=== PATIENT | female | born 1945 | race Caucasian/White ===

== ENCOUNTER 2016-12-06 16:11 | Inpatient (IN) | payer OTHER ==
[~2016-12-06] VITALS: Ht 162.6 cm; Wt 88.4 kg
--- NOTE | ~2016-12-06 | DS ---
Unit #: [id number] #: [id number] Patient: ERIC ALEXANDRA [id number] [address] [place], [place] [address] [id number] I MR#: [id number] NAME: ERIC ALEXANDRA ROOM: 322 Age: 71 Sex: F Admission Date: 12/06/2016 : 1945 Discharge Date: 12/09/2016 Attending Physician: Tomás Mcarthur M.D. Primary Care Physician: Malick Huber M.D. DISCHARGE SUMMARY PRINCIPAL DISCHARGE DIAGNOSES 1. Recurrent gastrointestinal bleed. 2. Acute on chronic anemia. 3. Diabetic ketoacidosis. 4. History of medical noncompliance. 5. Iron deficiency anemia. 6. History of gastritis. 7. History of colonic polyps. 8. History of diverticular disease. 9. History of coronary artery disease. 10. History of hypertension. 11. Renal insufficiency on admission that resolved. 12. Hypokalemia. PROCEDURES 1. Transfusion one unit packed rbc's, 12/06/2016. 2. Transfusion one unit packed rbc's, 12/07/2016. 3. Push enteroscopy up to proximal jejunum. CONSULTANTS Dr. Tima Sánchez; Dr. Iris Grove; Dr. Phillip Caldwell M.D. REASON FOR HOSPITALIZATION The patient is a 71-year-old white female with a history of coronary artery disease, three vessel anemia, gastritis, hiatal hernia, hypertension, diverticulosis, multiple GI bleeds, noncompliant, left AMA last admission February 2016, during which stay she had angioplasty, EGD, and colonoscopy. She presented to the emergency room on the day of admission complaining of bright red blood per rectum for 24 hours. In the ER she was hypotensive, anemic, had a blood sugar of 608, elevated beta hydroxybutyrate and was directly admitted to the ICU. Her hemoglobin on admission was 8.8. She was transfused one unit in the emergency room. She was placed on a DKA protocol with an insulin drip. Dr. Tima Sánchez from GI service, Dr. Grove from endocrinology were consulted. Additional test showed a hemoglobin A1c of 14.1. B12 and folic acid levels were within normal limits. Ferritin was low. Iron was 46, transferring saturation is 16, TIBC 280. Patient placed on IV iron. Her hemoglobin the following morning was 7.6 and she was transfused a second unit of blood. She underwent push endoscopy or enteroscopy on 12/07/2016, which showed a coincidental distal esophageal nonobstructing Schatzki's ring, otherwise is normal, up to 7 inches of the proximal jejunum. It was not felt to repeat her colonoscopy since she had multiple and had 02/2016. Her blood sugars came under better control. She required no further transfusions. Dr. Sánchez asked Dr. Caldwell to see her for her chronic Unit #: [id number] #: [id number] Patient: ERIC ALEXANDRA anemia. He recommended continued IV iron and scheduled followup in the office. Currently she appears to be stable. Her BMP, magnesium this morning were normal, except for random blood sugar of 171. Her CBC this morning is normal except for hemoglobin of 8. She is to followup with Dr. Huber in one week. Followup with Dr. Caldwell in one week. Followup with Dr. Tima Sánchez 01/15/2017 at 9:30 a.m. She is on a constant carb diet. DISCHARGE MEDICATIONS 1. Her aspirin and Plavix have been discontinued. 2. Her metformin, Zestoretic and amlodipine have been discontinued. 3. She is on Nystop powder b.i.d. to the vaginal area p.r.n. 4. Metoprolol XL 50 mg daily. 5. Levemir 50 units b.i.d. 6. NovoLog 20 units subcu a.c. 7. Omeprazole 40 mg p.o. b.i.d. 8. Imdur ER 30 mg daily. 9. Nitrostat 0.4 mg sublingual p.r.n. 10. It is unclear at this point whether it is safe to resume her Plavix and aspirin but I will leave this to Dr. Huber and Dr. Tierney's discretion. Dictated by... Joey Garnett M.D. GRICELDA/tatiana TD: 12/10/2016 12:44 JOB #: [id number] DISCHARGE SUMMARY Page 1 of 1 X Joey Garnett MD DISCHARGE SUMMARY
--- NOTE | ~2016-12-06 | CT2 ---
[facility] A Service of [facility] & [facility] RADIOLOGY TEXT RESULTS PATIENT: ERIC ALEXANDRA LOCATION: [address] : [birth year] UNIT #: [id number] AGE: [address]: Tomás Mcarthur MD SEX: F ORDER DR: [id number] [facility] [address] [facility]. [place], [place] [address] [id number] I MR#: [id number] Acc #: [id number] NAME: ERIC ALEXANDRA : 1945 SEX: F STUDY DATE/TIME: 12/06/2016 18:00 UNIT: [facility] ROOM: [facility] STUDY DESCRIPTION: CT Abd and Pelv W Cont Attending Physician: Tomás Mcarthur M.D. Ordering Physician: Todd Mai M.D. Primary Care Physician: Malick Huber M.D. MEDICAL IMAGING REPORT This report is preliminary unless electronic signature is present EXAM CT of the abdomen and pelvis with contrast, 12/06/[address] of the abdomen and pelvis with contrast, 03/10/2014 HISTORY Abdominal pain, bloody stools since 7 a.m. on 12/06/2016. TECHNIQUE CT of the abdomen and pelvis were obtained with IV contrast in the axial plane followed by sagittal and coronal reformats. Oral contrast was not administered. This CT exam was performed with one or more of the following radiation dose reduction techniques: automatic exposure control, adjustment of mA and/or kV according to patient size, and iterative reconstruction. FINDINGS Lack of oral contrast limits evaluation of bowel loops. LOW CHEST: Unremarkable. ABDOMEN: There appears to be slightly decreased density throughout the liver when compared to the spleen suspicious for mild diffuse fatty degeneration. It has not significantly enlarged in size however. No intrahepatic biliary ductal dilatation or mass. Spleen, adrenal glands, pancreas, kidneys are within normal limits. Bowel loops do not demonstrate any evidence of bowel obstruction. There are scattered diverticula without evidence of acute diverticulitis. Appendix is within normal limits. Degenerative changes are noted in the thoracolumbar spine. There is no free fluid or free air intraperitoneally. [facility] A Service of [facility] & [facility] RADIOLOGY TEXT RESULTS PATIENT: ERIC ALEXANDRA LOCATION: CICCU2 CICCU2-09 : [birth year] UNIT #: [id number] AGE: [address]: Tomás Mcarthur MD SEX: F ORDER DR: PELVIS: Uterus, urinary bladder and bowel loops do not demonstrate any significant abnormality. IMPRESSION 1. No evidence of acute abnormality in the abdomen or pelvis. 2. Appendix and gallbladder are unremarkable. No evidence of bowel obstruction. 3. Diverticulosis without acute diverticulitis. 4. Degenerative changes in the spine. Dictated by... Alpesh Rosales M.D. THIS IS AN ELECTRONICALLY VERIFIED REPORT Alpesh Rosales M.D. at 12/07/2016 9:16 PM RADHA/edd TD: 12/07/2016 18:23 JOB #: [id number] MEDICAL IMAGING REPORT Page 1 of 1 COPY
--- NOTE | ~2016-12-06 | A ---
[facility] Therapy DATE: 12/08/16 Patient: ERIC ALEXANDRA Physician: SAW Address: [address] Room/Bed: [address], Zip: [place] [address] Admit Date: 12/06/16 Date of : [birth year] Height: 5 4 Weight: 191 87 NUTRITIONAL ASSESSMENT: REASON: PT SEEN FOR DX PT IS 71 Y.O. FEMALE ADMITTED FOR GI BLEED, DKA PMH: POORLY CONTROLLED, NON COMPLIANT T2DM (DIAGNOSED 8 YEARS AGO), CAD, RECURRENT GI BLEED, HIATAL HERNIA, GASTRITIS, DIVERTICULOSIS, IBS, HTN Anthropometrics: 5'4", WT: 194# (88 KG), BMI: 33.3, 162%IBW Labs: GLU: 279, CA+:8.1, ALB: 2.7, Hgb A1c: 14.1 (REFLECTS POORLY CONROLLED DM) Meds: NOVOLOG, KCL, D5%, PROTONIX, NACL I/O & Bowel function: , 1 BM NOTED Skin Integrity: NO KNOWN SKIN ISSUES Assessment: CHART REVIEWED AND EVENTS NOTED. PT SEEN FOR DX. PT SITTING IN CHAIR AT TIME OF VISIT REPORTING GOOD PO INTAKE AND APPETITE. PT DENIES ANY RECENT WEIGHT LOSS, NOTED UBW IS ~195-200#. PER RN AND CHART, PT ADMITTED FOR RECURRENT GI BLEED AND DKA. THIS RD PROVIDED WRITTEN AND VERBAL CC DIET EDUCATION. PT REPORTS DRINKING MILK, UNSWEET TEA, WATER, AND DIET SODAS DAILY. THIS RD ENCOURAGED MORE WATER INTAKE, PT AGREED. PT REPORTS NOT FOLLOWING ANY SPECIFIC DIET AT HOME. PT REPORTED NO DIET QUESTIONS AT THIS TIME. RD TO REMAIN AVAILABLE. SEE RECOMMENDATIONS BELOW. Dx: IMPAIRED GLYCEMIC CONTROL R/T PMH, CURRENT DIAGNOSIS AEB ELEVATED BLOOD SUGAR LEVELS, A1c OF 14.1, NEED FOR THERAPEUTUC DIET ORDER. 2. STAGE 1 OBESITY R/T LIFESTYLE AEB BMI OF 33. Intervention: 1. 1800 KCAL DIET 2. DIET EDUCATION Monitoring, Evaluation and Goals: 1. ORAL INTAKE; CONSUME/TOLERATE <50% OF MEALS 2. WEIGHTS; PROMOTE GRADUAL WEIGHT LOSS TOWARDS A HEALTHY BMI 3. LABS; GLU WNL MONITOR: -PO INTAKE/APPETITE -WEIGHTS [facility] DATE: 12/08/16 Patient: ERIC ALEXANDRA Physician: SAW Address: [address] [facility] Room/Bed: [address], Zip: [place] [address] Admit Date: 12/06/16 Date of : [birth year] Height: 5 4 Weight: 191 87 -LABS (GLU) -EDUCATION NEEDS Recommendations: 1. RECOMMEND TO ADD CC TO CURRENT DIET ORDER 2' CURRENT DIAGNOSIS, PMH 2. RE-CONSULT RD IF FURTHER DIET EDUCATION NEEDED/REQUESTED 3. CONTINUE TO OPTIMIZE BLOOD SUGAR CONTROL REGIMEN RD WILL F/U PER PROTOCOL PT IS MILDLY COMPROMISED Respectfully, Keo Hooks, RD, LD [employer] [facility] [place] [facility] cc: client file
--- NOTE | ~2016-12-06 | EKG ---
PATIENT: ERIC ALEXANDRA UNIT #: [id number] Ventricular Rate: 78 BPM Atrial Rate: 78 BPM P-R Interval: 172 ms QRS Duration: 86 ms Q-T Interval: 380 ms QTC Calculation(Bezet): 433 ms P [place]: 28 degrees Calculated R [place]: -35 degrees Calculated T [place]: 43 degrees Diagnosis Line: Normal sinus rhythm Diagnosis Line: Left axis deviation Diagnosis Line: Abnormal ECG Diagnosis Line: When compared with ECG of 01-MAR-2016 06:56, Diagnosis Line: T wave inversion no longer evident in Anterior Diagnosis Line: leads Diagnosis Line: QT has shortened Diagnosis Line: Confirmed by SANTIAGO CONDE MD ([id number]) on Diagnosis Line: 12/08/2016 4:53:20 PM INTERPRETING MD: PRAVEEN
--- NOTE | ~2016-12-06 | CO ---
Unit #: [id number] #: [id number] Patient: ERIC GRIJALVA [id number] [facility]. [address] [place], [place] [address] [id number] I MR#: [id number] NAME: ERIC GRIJALVA ROOM: 322 Age: 71 Sex: F Admission Date: 12/06/2016 : 1945 Attending Physician: Tomás Mcarthur M.D. Primary Care Physician: Malick Huber M.D. Consultation Date: 12/07/2016 CONSULTATION REPORT PRIMARY CARE PHYSICIAN Malick Huber M.D. REASON FOR CONSULTATION 1. Severe anemia. 2. Possible gastrointestinal bleed. HISTORY OF PRESENT ILLNESS Ms. Grijalva is a very pleasant 71-year-old white female. The patient lives at home with her . She has a longstanding history of diabetes and is on insulin. She came in with hyperosmolar state with a blood sugar of 600 without any ketosis. Upon admission, she was also found to have anemia with a hemoglobin between 8 and 8.5, which has since dropped to 7.6. Looking at the old records, the patient is always being anemic at least over several years. I also see that she has multiple endoscopies and colonoscopies done in the past and these have been reportedly normal. Lastly, I do not see any evaluation from standpoint view of celiac disease nor any stool studies for occult blood. These were requested later. The patient very rarely has noticed scant hematochezia while wiping her bottom on occasions. She does mention history of fatigue. She also gives history of peripheral neuropathy as she feels tingling and numbness and burning in her feet most of the day and this keeps her awake at night time too. Her initial admission was precipitated by uncontrolled diabetes. PAST MEDICAL HISTORY Significant for history of angina as well as history of hypertension; diverticulosis; coronary artery disease, status post angioplasties and the patient is on long-term Plavix for the latter; insulin-requiring type 2 diabetes; hypertension; internal hemorrhoids; and diverticulosis. PAST SURGICAL HISTORY Included PTCAs and coronary angioplasty and stent placement. MEDICATIONS At home include Plavix as well as aspirin, metformin, Toprol-XL, Levemir, Zestoretic, Imdur, omeprazole, Nitrostat, NovoLog, and amlodipine. ALLERGIES She has no known drug allergies. SOCIAL HISTORY She does not smoke or drink alcohol, but does mention that she is very fond of cookies and donuts and eats them on a daily basis. Unit #: [id number] #: [id number] Patient: ERIC GRIJALVA FAMILY HISTORY None of colon, pancreatic cancer, or liver disease. REVIEW OF SYSTEMS Detailed review of organ systems does not reveal any recent weight loss. No history of fever, chills, or rigors. No history of headache, seizures, chest pain, or syncope. No history of cough, expectoration, or hemoptysis. No history of dysuria, hematuria, or pyuria. No history of focal seizures or extremity weakness. PHYSICAL EXAMINATION GENERAL: She is awake, alert, oriented, and appears very pleasant and comfortable. VITAL SIGNS: Stable with a temperature of 97.8, pulse 79 per minute and regular, respiratory rate is 14, blood pressure is 118/49. She weighs 194 pounds, which is close to her baseline weight. HEENT: She has mild pallor. There being no icterus, lymphadenopathy, or peripheral edema. CARDIOVASCULAR: Normal heart sounds. No murmurs. LUNGS: Auscultation over the lungs reveal normal breath sounds. Good air entry. ABDOMEN: Soft, obese, and nontender. Liver and spleen are not palpable and bowel sounds normal. DIAGNOSTIC STUDIES LABORATORY RESULTS: Shows a hemoglobin of 8.8 yesterday and 7.6 today in fact she has been transfused 1 unit of packed cells. Her MCV is 77.4, mildly hypochromic microcytic blood picture. White count and platelet counts are normal. INR is 1.0. Serum chemistry shows a normal BUN and creatinine, and sodium of 131; potassium 5.0, it is now 3.1 today. Albumin is 2.7. LFTs otherwise normal. Her iron studies, B12, and folate levels were sent and B12 and folate levels were normal, but ferritin is low and the patient needs iron infusions which are already written by Dr. Garnett. CLINICAL IMPRESSION 1. The patient with uncontrolled diabetes with compromised control overall, HbA1c of 14, poor dietary habits, and she also has peripheral neuropathy due to diabetes. Her anemia is a combination of iron deficiency and possibly anemia of chronic disease, maybe she has underlying myelodysplasia that maybe playing a role. 2. Underlying coronary artery disease, not initially but at the present time. MANAGEMENT PLAN We will obtain the patient's iron studies, B12, and folate levels. Start on iron infusions, which has already been started to transfuse to hemoglobin of 8. Consider a push enteroscopy in the next few hours to look for any angiodysplasias. Lastly, in view of the fact that she has multiple endoscopies and colonoscopy in the past, there is little point in repeating another colonoscopy which is not likely to yield any additional result. We will also obtain Hematology consult with Dr. Benton to see if the patient has any element of myelodysplasia and anything needs to be done in this regard. Lastly, we will also obtain (tTG) IgA level to see the remote possibility of celiac disease. The above plan was discussed with the patient and her and they were reassured. Thank you for asking me to see this pleasant woman. I appreciate the Unit #: [id number] #: [id number] Patient: ERIC GRIJALVA consult. Dictated by... Chucky Verma/kami TD: 12/08/2016 15:05 JOB #: [id number] CC: Chucky Vincent M.D. CONSULTATION REPORT Page 1 of 1 X Tima Sánchez MD X CONSULTATION REPORT
--- NOTE | ~2016-12-06 | OR ---
Unit #: [id number] #: [id number] Patient: ERIC ALEXANDRA [id number] [facility]. [place] [address] [facility]. [place], [place] [address] [id number] I MR#: [id number] NAME: ERIC ALEXANDRA ROOM: [facility] Date of Procedure: 12/07/2016 Admission Date: 12/06/2016 Surgeon: Tima Sánchez M.D. : 1945 Attending Physician: Tomás Mcarthur M.D. Primary Care Physician: Malick Huber M.D. OPERATIVE REPORT PRIMARY CARE PHYSICIAN Malick Huber M.D. PREOPERATIVE DIAGNOSIS Anemia with suggestion of iron deficiency and possibly dimorphic anemia. PROCEDURE PERFORMED Push enteroscopy up to proximal jejunum. POSTOPERATIVE DIAGNOSES The patient had coincidental distal esophageal nonobstructing Schatzki ring. Otherwise, examination was normal up to several inches of proximal jejunum. No angiodysplasias were seen. RECOMMENDATIONS The patient is already written up for blood transfusion and iron infusions by Dr. Garnett. These will be continued. She has had multiple endoscopies and colonoscopies in the past which were negative, therefore there is little point in repeating them. She may have some element of bone-marrow dysplasia and therefore we will request Hematology to see the patient from the latter standpoint. Lastly, the patient has compromised control over diabetes with HbA1c of 14, and she eats donuts and cookies every day. This was addressed too and she will try and alter the diet and may need some help in the future. SEDATION USED Procedural sedation. DESCRIPTION OF PROCEDURE Following detailed explanation of the potential risks and complications of upper endoscopy and a push enteroscopy, namely perforation, bleeding, and complication related to sedation, the patient was laid in left lateral decubitus position. Procedure was done in intensive care unit at the patient's bedside. A colonoscopy was used for push enteroscopy. A bite block was placed. Lubricated tip of the Olympus video colonoscope was inserted through the oral cavity into the esophagus. The entire esophageal mucosa was examined and appeared normal. Z-line was nicely demarcated, there being no esophagitis or hiatus hernia. The patient did have a distal esophageal Schatzki ring with a classic appearance. It was felt to be nonobstructing. The scope was then advanced into the gastric cavity and the latter was insufflated. Mucosa of the fundus, body, and antrum was examined and appeared unremarkable. Pylorus was intubated with Unit #: [id number] #: [id number] Patient: ERIC ALEXANDRA visualization of the normal duodenal bulb and second and third part of duodenum. The scope was then carried into the proximal jejunum and examined the successive segments of the small bowel and these were all normal. There being no evidence of any angiodysplasias. Successive segments of the small bowel mucosa were examined upon withdrawal and appeared unremarkable. The scope was then withdrawn in the antrum and retroverted, whereupon incisura, cardia, and greater curve was examined and appeared normal. The scope was then withdrawn in the distal esophagus. The entire esophageal mucosa was examined all the way up to pharynx, no additional findings were noted. The patient tolerated the procedure without any postprocedure complications. Dictated by... Chucky Verma/kami TD: 12/07/2016 13:27 JOB #: [id number] OPERATIVE REPORT Page 1 of 1 X Tima Sánchez MD X PROCEDURE OPERATIVE NOTE
--- NOTE | ~2016-12-06 | CO ---
Unit #: [id number] #: [id number] Patient: ERIC GRIJALVA [id number] [facility]. [address] [place], [place] [address] [id number] I MR#: [id number] NAME: ERIC GRIJALVA ROOM: 322 Age: 71 Sex: F Admission Date: 12/06/2016 : 1945 Attending Physician: Tomás Mcarthur M.D. Primary Care Physician: Malick Huber M.D. Consultation Date: 12/08/2016 CONSULTATION REPORT REASON FOR CONSULTATION Anemia, please evaluate for myelodysplastic syndrome. HISTORY OF PRESENT ILLNESS Ms. Eric Grijalva is a 71-year-old with a history of coronary artery disease, chronic anemia, gastritis, hiatal hernia, hypertension who was admitted with diabetic ketoacidosis. At time of presentation, she also complained of bright red blood per rectum since the day before. Admission blood sugar 608 with elevated beta-hydroxybutyrate and was hypotensive. She was transfused a unit of packed cells. Records in this hospital which extend to 2008 showed that she is chronically anemic with microcytic indices since that time. She tells me she has a long history of ice craving and she has had multiple endoscopies which have been negative. She was started on Plavix and aspirin for coronary artery disease, last February. No history of melena or hematochezia except immediately prior to her admission. PAST MEDICAL HISTORY Schatzki ring, atrophic gastropathy, nash diverticulosis, internal hemorrhoids, coronary artery disease, hypertension, and insulin-requiring type 2 diabetes approximately 8 years. PAST SURGICAL HISTORY Angioplasty and stent. FAMILY HISTORY Negative for blood disorders. SOCIAL HISTORY Nonsmoker. Does not drink any alcohol. She is and lives with her . REVIEW OF SYSTEMS Fourteen point review of systems was taken. CONSTITUTIONAL: No recent change in appetite or weight. EYES: Negative. EARS, NOSE, MOUTH, AND THROAT: Negative. CARDIOVASCULAR: Negative. RESPIRATORY: Negative. GASTROINTESTINAL: Bright red blood per rectum prior to admission. GENITOURINARY: Negative. NEUROLOGIC: Negative. ALLERGIC/LYMPHATIC: Negative. SKIN: Negative. Unit #: [id number] #: [id number] Patient: ERIC GRIJALVA ENDOCRINE: Diabetes. Does not follow diet. PSYCHIATRIC: Negative. PHYSICAL EXAMINATION GENERAL: She is a pleasant elderly woman, sitting in bed, awake, alert, oriented x3. VITAL SIGNS: Temperature is 99.5, pulse of 105, respirations 14, blood pressure 103/60, O2 saturation 96% on room air. HEENT: Shows pupils are equal and reactive well to light. She is pale, but not icteric. Mucous membranes are moist. NECK: Without adenopathy, JVD, thyromegaly. CARDIOVASCULAR: First and second heart sounds are regular without murmurs, gallops, or rubs. LUNGS: Chest expansion is symmetric. Bilateral equal air entry. Normal breath sounds. ABDOMEN: Soft and nontender. Bowel sounds are active. No organomegaly. EXTREMITIES: Warm. Good pulses. No edema, cyanosis, or clubbing. NEUROLOGIC: She is awake, alert, and oriented x3 without any focal findings. PSYCHIATRIC: Normal affect. SKIN: Negative. DIAGNOSTIC STUDIES LABORATORY RESULTS: CBC shows a white count 11.2, hemoglobin 7.9, MCV 78.6, platelet count 152,000. Basic metabolic panel shows BUN of 14, creatinine is 0.7. Iron studies done during this admission show iron of 46, TIBC is 280, percentage saturation 16% low. B12 is 220, folic acid 11.3, ferritin is 9 low. Last TSH 2.25. ASSESSMENT AND PLAN Eric Grijalva is a 71-year-old with longstanding chronic anemia with microcytic indices. She probably has chronic iron deficiency anemia secondary to occult gastrointestinal bleeding perhaps exacerbated by Plavix and aspirin for coronary artery disease. Long history of ice craving would support this. She may also have an element of iron malabsorption as she has been taking iron tablets on intermittent basis. I discussed situation with Ms. Grijalva as well as her who is at bedside. RECOMMENDATIONS 1. Continue Ferrlecit 250 mg IV for the third dose which would be a total of 750 mg IV. 2. Plan to follow up as an outpatient with additional Feraheme infusions as necessary. Dictated by... Phillip Caldwell M.D. GIO/kami TD: 12/10/2016 14:31 JOB #: [id number] Unit #: [id number] #: [id number] Patient: ERIC GRIJALVA CONSULTATION REPORT Page 1 of 1 X Phillip Caldwell MD CONSULTATION REPORT
--- NOTE | ~2016-12-06 | CO ---
Unit #: [id number] #: [id number] Patient: ERIC ALEXANDRA [id number] [facility]. [address] [place], [place] [address] [id number] MR#: [id number] NAME: ERIC ALEXANDRA ROOM: CICCU2 Age: 71 Sex: F Admission Date: 12/06/2016 : 1945 Attending Physician: Tomás Mcarthur M.D. Primary Care Physician: Malick Huber M.D. Consultation Date: 12/07/2016 CONSULTATION REPORT HISTORY OF PRESENT ILLNESS A 71-year-old female with multiple medical problems including type 2 diabetes mellitus, coronary artery disease with stent placement, history of GI bleed in the past, who presented to the emergency room, noticed some bright red blood per rectum. On her arrival in the emergency room, she was found to have glucose of 608 with some positive ketones. She has been admitted to the unit bed and was started on insulin drip and IV fluids. I have been asked to see the patient for further management. Note, the patient was also anemic on admission with hemoglobin 7.6. ALLERGIES No known drug allergies. PAST MEDICAL HISTORY Type 2 diabetes mellitus, poorly controlled due to poor compliance; coronary artery disease plus stent; multiple GI bleeds; irritable bowel syndrome; hypertension; hiatal hernia; gastritis; diverticulosis. HOME MEDICATIONS Include metformin 1000 mg b.i.d., Levemir 100 units nightly, Zestoretic 10/12.5 mg daily, Plavix 75 mg daily, aspirin daily, Imdur ER 30 mg daily, omeprazole, amlodipine 5 mg daily, NovoLog p.r.n. if blood sugars are high. PAST SURGICAL HISTORY Coronary artery stent placement, endoscopies in the past. SOCIAL HISTORY , not employed, nonsmoker, nondrinker. REVIEW OF SYSTEMS A 12-point review of system is completed. Please see HPI, otherwise unremarkable. PHYSICAL EXAMINATION VITAL SIGNS: Temperature 97.9, pulse is 80, respirations 16. HEENT: EOMI. Pupils equally reactive to light. NECK: Supple. No thyromegaly noted. CHEST: Good air entry. CVS: Regular rhythm. ABDOMEN: Soft, nontender, nondistended. Bowel sounds positive. EXTREMITIES: No edema or ulcers are noted. DIAGNOSTIC STUDIES LABORATORY RESULTS: Reviewed. Glucose is 120, sodium 135, potassium is Unit #: [id number] #: [id number] Patient: ERIC ALEXANDRA 3.1, calcium 7.5, magnesium is 1.5. ASSESSMENT 1. Hyperosmolar hyperglycemia with some ketoacidosis. 2. History of type 2 diabetes mellitus, uncontrolled. 3. Coronary artery disease plus stent placement. 4. Lower gastrointestinal bleed. PLAN The patient's blood sugar is significantly improved. We will discontinue the insulin drip. We will start Levemir 25 units daily. The patient is n.p.o. at this time awaiting the EGD by Dr. Sánchez. Once she resumes her diet, we will start NovoLog 6 units each meal cover with supplemental sliding scale. Accu-Cheks a.c. and h.s. Replace electrolytes. Thanks again for consultation. Dictated by... Chucky Rene/kami TD: 12/08/2016 11:41 JOB #: [id number] CONSULTATION REPORT Page 1 of 1 X Iris Grove MD X CONSULTATION REPORT
--- NOTE | ~2016-12-06 | HP ---
Unit #: [id number] #: [id number] Patient: ERIC ALEXANDRA [id number] [address] [place], [place] [address] [id number] MR#: [id number] NAME: ERIC ALEXANDRA ROOM: [facility]CU2 Age: 71 Sex: F Admission Date: 12/06/2016 : 1945 Attending Physician: Tomás Mcarthur M.D. Primary Care Physician: Malick Huber M.D. HISTORY AND PHYSICAL HISTORY OF PRESENT ILLNESS The patient is a 71-year-old white female with history of coronary artery disease (three vessel), anemia, gastritis, hiatal hernia, hypertension, diverticulosis, irritable bowel syndrome, multiple GI bleeds, noncompliant, left AMA last admission in February 2016 after an extensive evaluation at that time including cath, angioplasty, EGD, colonoscopy, etc. In any case, she presented back to the emergency room on the day of admission complaining of bright red blood per rectum since the day before. In the ER she was hypotensive, anemic, had a blood sugar of 608, elevated beta hydroxybutyrate. Was admitted to the ICU, transfused 1 unit, placed on DKA protocol. Her blood sugar is down to 140 this morning. GI has been consulted. She has been set up for a colonoscopy. Endocrine has been consulted and just arrived on the floor. Currently, the patient has had no further bleeding since she has been here. Her hemoglobin dropped to 7.6 after the 1 unit. Her potassium is low and being addressed this morning. Otherwise, she appears to be stable. The patient denies any nausea, vomiting, or abdominal pain. She denies any recent change in medications, ill exposure, or other symptoms. She has had no chest pain, shortness of air, or any other symptoms. ALLERGIES She has no known drug allergies. MEDICATIONS Meds prior to admission: 1. Zestoretic 01/22.5 one daily. 2. Metformin 1000 mg b.i.d. 3. Toprol XL 100 mg daily. 4. Levemir 100 units nightly. 5. Aspirin 81 mg daily. 6. Plavix 75 mg daily. 7. Omeprazole 40 mg b.i.d. 8. Imdur ER 30 mg daily. 9. Nitrostat 0.4 mg sublingual p.r.n. for chest pain. 10. NovoLog 20 units subcutaneous t.i.d. before meals. 11. Amlodipine 5 mg p.o. daily. PAST SURGICAL HISTORY Surgical history is only that of a stent. PAST MEDICAL HISTORY 1. Esophageal ring. 2. Atrophic gastropathy. 3. Pandiverticulosis. Unit #: [id number] #: [id number] Patient: ERIC ALEXANDRA 4. Internal hemorrhoids. 5. Coronary artery disease. 6. Hypertension. 7. Insulin-requiring type 2 diabetes mellitus. SOCIAL HISTORY , not employed. Nonsmoker. Nondrinker. No street drug use. FAMILY HISTORY Noncontributory. PHYSICAL EXAMINATION GENERAL: She is awake, alert, oriented x3 in no acute distress. VITAL SIGNS: Her blood pressure was 71/40 in the ER but quickly came up after fluid bolus to 118/39. Her current temperature is 97.8, pulse 79, respirations 14, blood pressure 118/49, O2 saturation 100% on 2 L. HEENT: Unremarkable except for pale mucous membranes. NECK: Supple without JVD, bruits, adenopathy, or thyromegaly. CHEST: Clear to auscultation. HEART: Regular rate and rhythm without any murmurs, rubs, or gallops. ABDOMEN: Soft, nondistended, nontender with positive bowel sounds and no hepatosplenomegaly. EXTREMITIES: Showed no clubbing, cyanosis, or edema. GENITOURINARY: Deferred. RECTAL: Deferred. NEUROLOGIC: Grossly intact. DIAGNOSTIC STUDIES LABORATORY: Cardiac enzymes normal on admission. Hemoglobin 8.8 with a low MCV and MCH and normal RDW. She was typed, crossmatched, and transfused 1 unit with a resultant hemoglobin of 7.6 this morning. Her platelets and white count are normal. PT/INR is 1, PTT was less than 20. BMP on admission was normal except for a sodium of 131, glucose 608, GFR 56.7, and albumin of 3.4. Beta hydroxybutyrate was 0.91. Urinalysis shows greater than 1000 mg/dL of glucose. Her CMP this morning is normal except for a potassium of 3.1 and an albumin of 2.7. Her iron is 46, iron transferrin saturation 16, TIBC 280. B12 is 220. Folic acid 11.3. Ferritin 9. CARDIOVASCULAR: EKG shows a sinus rhythm, left axis deviation, 78 beats per minute but is otherwise within normal limits. IMPRESSION 1. Recurrent gastrointestinal bleed. 2. Acute on chronic anemia. 3. History of gastritis. 4. Peptic ulcer disease. 5. History of colonic polyps. 6. History of diverticular disease. 7. Coronary artery disease. 8. Diabetic ketoacidosis. 9. Hypertension. 10. Renal insufficiency. 11. Hypokalemia. 12. History of noncompliance. PLAN Will transfuse one more unit of blood to keep her hemoglobin closer to 8, Unit #: [id number] #: [id number] Patient: ERIC ALEXANDRA especially since she has history of three-vessel coronary artery disease which is quite severe as well as upcoming endoscopy. She is NPO otherwise. Will replace her potassium per protocol. Check her magnesium, IV iron. Followup on her labs. SCDs for deep venous thrombosis prophylaxis. IV proton pump inhibitors for gastrointestinal prophylaxis. Further evaluation pending colonoscopy and results of consultations and transfusion. Dictated by Joey Garnett M.D. GRICELDA/terrence TD: 12/07/2016 10:41 JOB #: [id number] HISTORY AND PHYSICAL Page 1 of 1 X Joey Garnett MD X HISTORY AND PHYSICAL
[~2016-12-06 16:11] MED LIST: AMLODIPINE BESYL5 MG PO; ASPIRIN81 M2 PO; CLOPIDOGREL75 MG PO; CRESTOR10 MG PO; FEOSOL PO; FEROSUL325 ( 651 PO; FERRO-TIME325 MG PO; GLUCOPHAGE PO; IMDUR-ER30 M3 PO; LEVEMIR100 U/ML SQ; LEVEMIR100 UNITS/ SUBQ; LIPITOR80 MG PO; LISINOPRIL-HCTZ1 T14 PO; LISINOPRIL-HCTZ1 T20 PO; LOTENSIN40 MG PO; LOTREL 5/20 MG1 CAP PO; METFORMIN HCL500 M1 PO; METFORMIN PO; METOPROLOL SUC200 MG PO; NITROSTAT0.4 MG SL; OMEPRAZOLE40 M1 PO; OMEPRAZOLE40 MG PO; PATIENT'S PHARMACY; PLAVIX PO; PROTONIX PO; TOPROL XL PO; TOPROL XL200 MG PO; VICODIN 5/500 T1 TAB PO
[2016-12-06 16:47] LABS: BASOPHIL# 0.1 X10e3 (0-0.3); BASOPHIL% 1.3 % (0-2.5); EOSINOPHIL# 0.1 X10e3 (0-0.7); EOSINOPHIL% 0.7 % (0.0-7.0); HEMOGLOBIN 8.8 gm/dL (12.0-16.0); LYMPHOCYTE# 1.9 X10e3 (1.0-3.5); LYMPHOCYTE% 18.7 % (17.0-45.0); MEAN CELL VOLUME 79.8 FL (83-96); MEAN CORPUSCULAR HEMOGLOBIN 25.2 PG (28-34); MEAN CORPUSCULAR HGB CONC 31.6 g/dL (30-36); MEAN PLATELET VOLUME 9.9 FL (6.5-11.5); MONOCYTE# 0.7 X10e3 (0-1.0); MONOCYTE% 6.5 % (3.0-12.0); NEUTROPHIL# 7.5 X10e3 (1.5-7.1); NEUTROPHIL% 72.8 % (40-75); PLATELET COUNT 218 X10e3 (140-420); RED BLOOD COUNT 3.51 X10e (3.90-5.30); RED CELL DISTRIBUTION WIDTH 15.2 % (11.0-15.5); WHITE BLOOD COUNT 10.3 X10e3 (4.0-10.5)
[2016-12-06 16:53] LABS: POC - CKMB 1.6 ng/mL (0.0-7.9); POC - TROPONIN <0.05 ng/mL (<=0.05)
[2016-12-06 17:00] LABS: DIFF IND NO; PROTHROMBIN TIME (PATIENT) 10.8 SECONDS (10.0-11.7)
[2016-12-06 17:03] LABS: PARTIAL THROMBOPLASTIN TIME <20.0 SECONDS (23.5-31.3)
[2016-12-06 17:19] LABS: ALBUMIN SERUM 3.4 g/dL (3.5-5.0); BILIRUBIN, DIRECT 0.1 mg/dL (0.0-0.2); BILIRUBIN,INDIRECT 0.4 mg/dL (0.0-0.9); BILIRUBIN,TOTAL 0.5 mg/dL (0.2-2.0); CALCIUM SERUM 8.5 mg/dL (8.4-10.2); GLOM FILT RATE Estimated 56.7 mL/min (>60); PROTEIN TOTAL SERUM 6.5 g/dL (6.0-8.3)
[2016-12-06 17:49] LABS: URINE SOURCE CLEAN CATCH
[2016-12-06 17:59] LABS: URINE APPEARANCE CLEAR; URINE BILIRUBIN NEG (NEG); URINE BLOOD NEG (NEG); URINE COLOR YELLOW; URINE GLUCOSE >1000 MG/DL (NEG); URINE KETONE TRACE (NEG); URINE LEUKOCYTE ESTERASE NEG (NEG); URINE NITRATE NEG (NEG); URINE PH 5.5 (5-8); URINE PROTEIN NEG (NEG); URINE SPECIFIC GRAVITY 1.027 (1.003-1.035); URINE UROBILINOGEN 0.2 MG/DL (NEG)
[2016-12-06 18:07] LABS: CULTURE INDICATED? NO
[2016-12-06] MEDS ORDERED: ZESTORETIC 10-1 EAC1 PO (21:36)
[2016-12-06] MEDS ORDERED: FORTAMET1000 MG PO (21:37)
[2016-12-06] MEDS ORDERED: TOPROL XL100 MG PO (21:37)
[2016-12-06] MEDS ORDERED: LEVEMIR100 UNITS/ SUBQ (21:38)
[2016-12-06] MEDS ORDERED: ASPIRIN81 MG PO (21:38)
[2016-12-06] MEDS ORDERED: OMEPRAZOLE40 M1 PO (21:39)
[2016-12-06] MEDS ORDERED: CLOPIDOGREL75 MG PO (21:39)
[2016-12-06] MEDS ORDERED: NITROSTAT0.4 MG SL (21:40)
[2016-12-06] MEDS ORDERED: IMDUR-ER30 M1 PO (21:40)
[2016-12-06] MEDS ORDERED: NOVOLOG100 UNITS/ SUBQ (21:43)
[2016-12-06] MEDS ORDERED: AMLODIPINE BESYL5 MG PO (21:43)
[2016-12-07 05:26] LABS: ALBUMIN SERUM 2.7 g/dL (3.5-5.0); BILIRUBIN,TOTAL 0.5 mg/dL (0.2-2.0); BUN/CREATININE RATIO 22.85; CALCIUM SERUM 7.5 mg/dL (8.4-10.2); CREATININE SERUM 0.7 mg/dL (0.6-1.4); GLOM FILT RATE Estimated 87.2 mL/min (>60); PROTEIN TOTAL SERUM 5.2 g/dL (6.0-8.3)
[2016-12-07 05:42] LABS: FOLATE (FOLIC ACID) 11.3 ng/mL (>5.8)
[2016-12-07 05:44] LABS: BASOPHIL% 0.5 % (0-2.5); EOSINOPHIL# 0.1 X10e3 (0-0.7); EOSINOPHIL% 1.2 % (0.0-7.0); HEMATOCRIT 22.8 % (35.0-45.0); HEMOGLOBIN 7.6 gm/dL (12.0-16.0); LYMPHOCYTE# 2.2 X10e3 (1.0-3.5); LYMPHOCYTE% 28.3 % (17.0-45.0); MEAN CELL VOLUME 77.4 FL (83-96); MEAN CORPUSCULAR HEMOGLOBIN 25.7 PG (28-34); MEAN CORPUSCULAR HGB CONC 33.2 g/dL (30-36); MEAN PLATELET VOLUME 9.2 FL (6.5-11.5); MONOCYTE# 0.6 X10e3 (0-1.0); MONOCYTE% 7.9 % (3.0-12.0); NEUTROPHIL# 4.8 X10e3 (1.5-7.1); NEUTROPHIL% 62.1 % (40-75); PLATELET COUNT 154 X10e3 (140-420); RED BLOOD COUNT 2.95 X10e (3.90-5.30); RED CELL DISTRIBUTION WIDTH 14.9 % (11.0-15.5); WHITE BLOOD COUNT 7.8 X10e3 (4.0-10.5)
[2016-12-07 05:47] LABS: DIFF IND NO
[2016-12-07 05:49] LABS: POTASSIUM 3.1 mmol/L (3.5-5.1)
[2016-12-08 08:43] LABS: HEMATOCRIT 23.8 % (35.0-45.0); HEMOGLOBIN 7.9 gm/dL (12.0-16.0); MEAN CELL VOLUME 78.6 FL (83-96); MEAN CORPUSCULAR HGB CONC 33.1 g/dL (30-36); MEAN PLATELET VOLUME 9.1 FL (6.5-11.5); RED BLOOD COUNT 3.02 X10e (3.90-5.30); RED CELL DISTRIBUTION WIDTH 14.8 % (11.0-15.5); WHITE BLOOD COUNT 11.2 X10e3 (4.0-10.5)
[2016-12-08 09:08] LABS: CALCIUM SERUM 8.1 mg/dL (8.4-10.2); CREATININE SERUM 0.7 mg/dL (0.6-1.4); GLOM FILT RATE Estimated 87.2 mL/min (>60); MAGNESIUM 1.7 mg/dL (1.6-3.0); POTASSIUM 4.1 mmol/L (3.5-5.1)
[2016-12-09 07:25] LABS: MEAN CORPUSCULAR HEMOGLOBIN 26.2 PG (28-34); MEAN CORPUSCULAR HGB CONC 33.1 g/dL (30-36); MEAN PLATELET VOLUME 9.1 FL (6.5-11.5); RED BLOOD COUNT 3.04 X10e (3.90-5.30); RED CELL DISTRIBUTION WIDTH 15.1 % (11.0-15.5); WHITE BLOOD COUNT 9.4 X10e3 (4.0-10.5)
[2016-12-09 07:46] LABS: CALCIUM SERUM 8.5 mg/dL (8.4-10.2); CREATININE SERUM 0.6 mg/dL (0.6-1.4); GLOM FILT RATE Estimated 91.7 mL/min (>60); MAGNESIUM 1.7 mg/dL (1.6-3.0); POTASSIUM 3.6 mmol/L (3.5-5.1)
[2016-12-09] MEDS ORDERED: LEVEMIR100 UNITS/ SUBQ (17:10)
[2016-12-09] MEDS ORDERED: METOPROLOL SUCC50 MG PO (17:11)
[2016-12-09] MEDS ORDERED: MONISTAT 745 G1 VAG (17:12)
[2016-12-09] MEDS ORDERED: NOVOLOG100 U/ML SUBQ (17:15)
== END 2016-12-09 18:25 | disposition home or self-care (01) | DRG 377 ==
LOC: CED 16:11 → C3A PCU 19:20 → CICCU2 19:20 → CED 19:41 → C3A PCU 12-08 20:40
PROVIDERS: Emergency Medicine; Hospitalist; Internal Medicine; Internal Medicine Gastroenterology
PROC: 30233N1 Transfusion of Nonautologous Red Blood Cells into Peripheral Vein, Percutaneous Approach (ICD-10-PCS; 2016-12-06)
PROC: 0DJ08ZZ Inspection of Upper Intestinal Tract, Via Natural or Artificial Opening Endoscopic (ICD-10-PCS; principal; 2016-12-07 13:00)
DX: K92.2 Gastrointestinal hemorrhage, unspecified (principal); E13.10 Other specified diabetes mellitus with ketoacidosis without coma; K22.2 Esophageal obstruction; Z79.4 Long term (current) use of insulin; D50.9 Iron deficiency anemia, unspecified; I25.10 Atherosclerotic heart disease of native coronary artery without angina pectoris; Z95.5 Presence of coronary angioplasty implant and graft; I10 Essential (primary) hypertension; N28.9 Disorder of kidney and ureter, unspecified; E87.6 Hypokalemia; Z98.51 Tubal ligation status; Z86.010 Personal history of colon polyps
CPT/HCPCS: 36415; 36430; 51701; 74177; 80048; 80053; 80076; 81003; 82010; 82553; 82607; 82728; 82746; 82947; 83036; 83516; 83540; 83550; 83735; 84132; 84484; 85025; 85027; 85610; 85730; 86850; 86900; 86901; 86923; 93005; 96361; 96374; 96375; 97161; 97165; 99291; C9113; G8978-GP; G8979-GP; G8980-GP; G8987-GO; G8988-GO; G8989-GO; J1815; J2250; J2405; J2916; J3010; J3475; P9016; Q9967